=== PATIENT | male | born 1965 | race Caucasian/White ===

== ENCOUNTER → 2016-08-02 | Outpatient (CLI) | payer OTHER | LOC: BMCIMAGING 15:34 | PROVIDERS: ATTEND Internal Medicine | DX: S82.65XA Nondisplaced fracture of lateral malleolus of left fibula, initial encounter for closed fracture (principal) ==

== ENCOUNTER → 2016-08-24 | Outpatient (CLI) | payer OTHER | LOC: BMCIMAGING 12:23 | PROVIDERS: ATTEND Podiatrist Foot & Ankle Surgery | DX: S82.832A Other fracture of upper and lower end of left fibula, initial encounter for closed fracture (principal); X58.XXXA Exposure to other specified factors, initial encounter ==

== ENCOUNTER → 2016-09-21 | Outpatient (CLI) | payer OTHER | LOC: BMCIMAGING 12:34 | PROVIDERS: ATTEND Podiatrist Foot & Ankle Surgery | DX: S82.65XA Nondisplaced fracture of lateral malleolus of left fibula, initial encounter for closed fracture (principal); M85.80 Other specified disorders of bone density and structure, unspecified site ==

== ENCOUNTER → 2016-10-19 | Outpatient (CLI) | payer OTHER | LOC: BMCIMAGING 13:32 | PROVIDERS: ATTEND Podiatrist Foot & Ankle Surgery | DX: S82.435D Nondisplaced oblique fracture of shaft of left fibula, subsequent encounter for closed fracture with routine healing (principal) ==

== ENCOUNTER → 2016-11-11 | Outpatient (CLI) | payer OTHER | LOC: BMCIMAGING 15:18 | PROVIDERS: ATTEND Podiatrist Foot & Ankle Surgery | DX: S82.892D Other fracture of left lower leg, subsequent encounter for closed fracture with routine healing (principal) ==

== ENCOUNTER → 2016-12-23 | Outpatient (CLI) | payer OTHER | LOC: BMCIMAGING 13:43 | PROVIDERS: ATTEND Podiatrist Foot & Ankle Surgery | DX: S82.432D Displaced oblique fracture of shaft of left fibula, subsequent encounter for closed fracture with routine healing (principal) ==

== ENCOUNTER 2017-02-22 07:31 | Day surgery (SDC) | payer OTHER ==
[2017-02-22] MEDS ORDERED: LR 1,000 ML IV ONE (07:44)
[2017-02-22] MEDS ORDERED: LIDOCAINE 1% 2 ML INJ ID PRN (07:44)
[2017-02-22 07:59] VITALS: RESP 16
[2017-02-22] MEDS ORDERED: BUPIVACAINE 0.5% 30 ML SDV ONE (08:36)
--- NOTE | 2017-02-22 08:50 | PDANEPAE ---
ANE History of Present Illness Release of contracture, L index finger ANE Past Medical History - Cardiovascular History Hx Hypertension: No Hx Arrhythmias: No Hx Chest Pain: No Hx Coronary Artery / Peripheral Vascular Disease: No Hx CHF / Valvular Disease: No Hx Palpitations: No - Pulmonary History Hx COPD: No Hx Asthma/Reactive Airway Disease: Yes Hx Recent Upper Respiratory Infection: No Hx Oxygen in Use at Home: No Hx Sleep Apnea: Yes Sleep Apnea Screening Result - Last Documented: Positive Pulmonary History Comment: asthma - Neurologic History Hx Cerebrovascular Accident: No Hx Seizures: No Hx Dementia: No - Endocrine History Hx Diabetes: No Hypothyroid: No Hyperthyroid: No Obesity: no - Renal History Hx Renal Disorders: No - Liver History Hx Hepatic Disorders: No - Neurological & Psychiatric Hx Hx Neurological and Psychiatric Disorders: No - Cancer History Hx Cancer: No - Congenital Disorder History Hx Congenital Disorders: No - GI History GERD: mild Hx Gastrointestinal Disorders: No - Other Health History Other Health History: both hands,corner of eyes - Chronic Pain History Chronic Pain: Yes (left broken ankle) - Surgical History Prior Surgeries: removed ganglion L Iindex finger ANE Review of Systems Review of Systems: - Exercise capacity METS (RN): 4 METS ANE Patient History - Allergies Allergies/Adverse Reactions: peanut Allergy (Verified 02/21/17 17:24) Swelling/neck,face,throat peanut oil Allergy (Verified 02/21/17 17:24) - NPO status NPO Since - Liquids (Date): 02/21/17 NPO Since - Liquids (Time): 21:00 NPO Since - Solids (Date): 02/21/17 NPO Since - Solids (Time): 18:00 - Anes Hx Anes Hx: no prior problems - Smoking Hx Smoking Status: Never smoked Marijuana use: No - Alcohol Use Alcohol Use: Other (2 glasses of wine/week) - Family Anes Hx Family Hx Anesthesia Complications: none ANE Labs/Vital Signs - Vital Signs Blood Pressure: 123/83 Heart Rate: 56 Respiratory Rate: 16 O2 Sat (%): 96 Height: 191.77 cm Weight: 81.647 kg ANE Physical Exam - Airway Neck exam: FROM Mallampati Score: Class 2 Mouth exam: normal dental/mouth exam - Pulmonary Pulmonary: clear to auscultation - Cardiovascular Cardiovascular: regular rate and rhythym - ASA Status ASA Status: II ANE Anesthesia Plan Regional Anesthesia: single shot NB (Axillary BP nerve block proc/benefits/ risks discussed. Questions answered.)
[2017-02-22] MEDS ORDERED: MIDAZOLAM 2 MG/2 ML VIAL IVP ONE (08:51)
--- NOTE | 2017-02-22 08:53 | PDHPUP ---
History & Physical Update H&P update statement: This history and physical update is based on an assessment of the patient which was completed after admission or registration (within 24 hours), but prior to the surgery/procedure. H&P update: H&P reviewed & patient examined, no change in patient's condition since H&P completed
[2017-02-22] MEDS ORDERED: fentaNYL 100 MCG/2 ML INJ ONE (08:56)
[2017-02-22] MEDS ORDERED: PROPOFOL 200 MG/20 ML VIAL ONE (08:57)
[2017-02-22] MEDS ORDERED: LIDOCAINE 2% 5 ML SDV ONE (08:59)
[2017-02-22] MEDS ORDERED: MIDAZOLAM 2 MG/2 ML VIAL ONE (09:15)
[2017-02-22] MEDS ORDERED: NALOXONE HCL 0.4 MG/ML INJ IVP PRN (10:57)
[2017-02-22 11:40] VITALS: TEMP 97.5
[2017-02-22 11:45] VITALS: PULSE 63
[2017-02-22 12:02] VITALS: BP 125/84; O2SAT 98
--- NOTE | 2017-02-22 14:00 | POSTANESTH ---
Post Anesthetic Evaluation Cardiovascular Status: Normal, Stable Respiratory Status: Normal, Stable Level of Consciousness/Mental Status: Can Participate in Eval Pain Control: Adequate, Prn Tx Ordered Nausea/Vomiting Control: Adequate, Prn Tx Ordered Complications Possibly Related to Anesthesia: None Noted
--- NOTE | 2017-02-22 14:01 | GOP ---
[f rep st] OPERATIVE REPORT DATE OF OPERATION: 02/22/2017 SURGEON: Sonu Sr MD ANESTHESIA: Axillary block and MAC. PREOPERATIVE DIAGNOSIS: Left index finger Dupuytren's contracture of the proximal interphalangeal dean int. POSTOPERATIVE DIAGNOSIS: Left index finger Dupuytren's contracture of the proximal interphalangeal j oint. PROCEDURE PERFORMED: Left index finger partial fasciectomy for Dupuytren's disease. FINDINGS: SPECIMENS: Palmar fascia from the left index finger. INDICATIONS: This patient is a 52-year-old male who presented to the clinic with about a 30 degree c ontracture of the index finger that was worsening. 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 I d iscussed with the patient the risks and benefits of operative versus nonoperative treatment. Risks o f operative treatment include pain, bleeding, infection, contracture recurrence, stiffness, damage to surrounding structures, need for further operations, and recurrence. He understood the risks and wi shed to proceed. DESCRIPTION OF PROCEDURE: The patient was seen in the preoperative holding area. All of his questio ns were answered. Consent was signed. He was then taken to the operative suite. Care was taken to transfer him from the [place] to the operating table. Care was taken to pad all bony prominences. A block was performed by the Anesthesia team. Sedation was given by the Anesthesia team. Time-out was called including surgical and anesthesia teams, confirming the surgical site and procedure to be per formed. The left upper extremity was prepped and draped in the usual sterile fashion. Esmarch was e xsanguinated and a left upper extremity tourniquet was inflated to 250 mmHg. I marked out the incisi on over the cord which appeared to be starting just proximal to his MP flexion creased and into the c entral aspect of his digit and then over to the IP joint causing about a 30 degree flexion contractur e. I made an incision and first began dissection on the radial aspect as this cord was more radial s ided. I identified the neurovascular bundle on the radial side and dissected this out carefully, pro ximal end displayed to protect it at all times. I then began to separate the palmar fascial cord-lik e material from the overlying skin leaving as thick of a skin flap as possible. I elevated the cord- like material to the other side then, on the ulnar side, identified the ulnar neurovascular bundle, p rotected this at all times and, underneath the cord, identified the flexor tendon sheath and protecte d this. We had isolated the cord distally and proximally. The cord was excised in its entirety from its proximal origin over distally and to what was inserting just distal to the PIP joint causing the contracture. It was inserting essentially onto the flexion tendon sheath. Upon excising this mater ial, the finger was out in full extension. The tourniquet was let down. There was great perfusion o f the digit. All bleeding was controlled. The incisions were closed with 5-0 nylon suture. A steri le dressing was applied. An aluminum foam splint was placed with the finger in extension. The patie nt tolerated the procedure well and was taken to PACU in stable condition. COMPLICATIONS: None POSTOPERATIVE CONDITION: Stable. POSTOPERATIVE PLAN: The patient is to come back to clinic in 9-14 days for a wound check and suture removal. He is to keep the dressing on for 3 days. He is to keep the splint on at night. We will d [place] on formal therapy at his next appointment. He will be encouraged to move the finger to regain range of motion. /[id number]/MODL
== END 2017-02-22 12:17 | disposition home or self-care (01) ==
LOC: FSGY 07:31
PROVIDERS: ATTEND Orthopaedic Surgery Hand Surgery
PROC: 0LN80ZZ Release Left Hand Tendon, Open Approach (ICD-10-PCS; principal; 2017-02-22 09:00)
DX: M72.0 Palmar fascial fibromatosis [Dupuytren] (principal)
CPT/HCPCS: J2250; J2704; J3010